=== PATIENT | male | born 1955 | race Caucasian/White ===

== ENCOUNTER 2017-08-24 13:08 | Emergency (ER) | payer BC, SELFPAY | END 2017-08-24 15:00 | disposition short-term general hospital (02) | PROVIDERS: Emergency Provider Emergency Medicine; Family Provider Family Medicine; Visit Provider Emergency Medicine | DX: R56.9 Unspecified convulsions (principal); J18.9 Pneumonia, unspecified organism; R41.82 Altered mental status, unspecified; C34.90 Malignant neoplasm of unspecified part of unspecified bronchus or lung; C79.31 Secondary malignant neoplasm of brain; C79.51 Secondary malignant neoplasm of bone; I10 Essential (primary) hypertension; E78.5 Hyperlipidemia, unspecified; Z79.899 Other long term (current) drug therapy | CPT/HCPCS: 71010; 80053; 80177; 83605; 85025; 87040; 87070; 87077; 87186; 96365; 96367; 96375; 99285; J1953 ==